=== PATIENT | female | born 2005 | race Caucasian/White ===

== ENCOUNTER 2024-08-03 09:15 | Day surgery (SDC) | payer OTHER ==
[2024-08-03] MEDS ORDERED: Acetaminophen 500 MG TAB ONE (09:33)
[2024-08-03] MEDS: Acetaminophen 500 MG TAB PO SCH (09:34)
[2024-08-03] MEDS: Iron Sucrose Complex 500 MG in Sodium Chloride 0.9% 250 ML 250 ML IVPB SCH (10:17)
[2024-08-03] MEDS ORDERED: diphenhydrAMINE 50 MG/ML VIAL ONE (10:49)
[2024-08-03] MEDS ORDERED: Ondansetron PF 4 MG/2 ML Vial ONE (10:49)
[2024-08-03] MEDS: diphenhydrAMINE 50 MG/ML VIAL IVP SCH (10:53)
[2024-08-03] MEDS: Ondansetron PF 4 MG/2 ML Vial IVP SCH (10:57)
[2024-08-03 11:04] VITALS: TEMP 98.5
[2024-08-03 11:25] VITALS: BP 118/68
== END 2024-08-03 11:53 | disposition home or self-care (01) ==
LOC: ONC/OP 09:15
PROVIDERS: ATTEND Family Medicine
DX: O99.019 Anemia complicating pregnancy, unspecified trimester (principal); Z3A.00 Weeks of gestation of pregnancy not specified
CPT/HCPCS: 96365; 96375; 99212; G0463; J1200; J1756; J2405; J7050